=== PATIENT | female | born 1995 | race Two or more races ===

== ENCOUNTER 2019-03-20 00:53 | Emergency (ER) | payer OTHER ==
[2019-03-20 05:05] VITALS: BP 106/60
--- NOTE | 2019-03-20 05:39 | RADIOLOGY REPORT (SQ) ---
EXAM DESCRIPTION: XR NECK SOFT TISSUE COMPLETED DATE/TME: 03/20/2019 05:04 CLINICAL HISTORY: 24 years, Female, eval for retained FB, lac to left posterior ear COMPARISON: None. NUMBER OF VIEWS: 2 TECHNIQUE: 2 views of the neck using soft tissue technique LIMITATIONS: None. FINDINGS: The airway is widely patent. The prevertebral soft tissues are normal. Negative for radiopaque foreign body. The epiglottis is normal IMPRESSION: Negative exam copyright 2010 [employer]- All Rights Reserved
--- NOTE | 2019-03-20 06:07 | ER Document Report ---
ED Wound - General Chief Complaint: Laceration Stated Complaint: LEFT SIDED NECK LACERATION Time Seen by Provider: 03/20/19 05:03 Mode of Arrival: Ambulatory Information source: Patient Notes: Patient is an otherwise healthy 24-year-old female presented to the emergency department with laceration to her left neck just behind her ear. Patient reports she was dancing in the kitchen with her when she fell and struck her face on a wine glass that was sitting on the coffee table. Patient does have a small laceration measuring approximately 2 cm. Patient reports Tdap is up-to-date. Denies any other symptoms. TRAVEL OUTSIDE OF THE [place] IN LAST 30 DAYS: No - Related Data Allergies/Adverse Reactions: No Known Allergies Allergy (Unverified 03/20/19 05:32) Past Medical History - General Information source: Patient - Social History Smoking Status: Never Smoker Chew tobacco use (# tins/day): No Frequency of alcohol use: Occasional Drug Abuse: None Family History: Reviewed & Not Pertinent Patient has suicidal ideation: No Patient has homicidal ideation: No - Medical History Medical History: Negative Renal/ Medical History: Denies: Hx Peritoneal Dialysis Surgical Hx: Negative - Immunizations Immunizations up to date: Yes Review of Systems - Review of Systems Constitutional: No symptoms reported EENT: No symptoms reported Cardiovascular: No symptoms reported Respiratory: No symptoms reported Gastrointestinal: No symptoms reported Genitourinary: No symptoms reported Female Genitourinary: No symptoms reported Musculoskeletal: No symptoms reported Skin: See HPI Hematologic/Lymphatic: No symptoms reported Neurological/Psychological: No symptoms reported Physical Exam - Vital signs Vitals: Temp Pulse Resp BP Pulse Ox 97.7 F 65 20 106/60 99 03/20/19 05:02 03/20/19 05:02 03/20/19 05:02 03/20/19 05:02 03/20/19 05:02 - Notes Notes: PHYSICAL EXAMINATION: GENERAL: Well-appearing, well-nourished and in no acute distress. HEAD: Atraumatic, normocephalic. EYES: Pupils equal round extraocular movements intact, conjunctiva are normal. ENT: Nares patent NECK: Normal range of motion LUNGS: No respiratory distress Musculoskeletal: Normal range of motion NEUROLOGICAL: Normal speech, normal gait. PSYCH: Normal mood, normal affect. SKIN: Warm, Dry, normal turgor, no rashes or lesions noted. 2 cm linear laceration behind patient's ear, approximates well, no active bleeding. Course - Re-evaluation Re-evalutation: X-ray was performed due to laceration being caused by broken glass. There is no retained foreign body. Laceration was repaired using Dermabond. Patient tolerated procedure well and discharged home in stable condition. - Vital Signs Vital signs: Temp Pulse Resp BP Pulse Ox 97.7 F 65 20 106/60 99 03/20/19 05:02 03/20/19 05:02 03/20/19 05:02 03/20/19 05:02 03/20/19 05:02 Procedures - Laceration/Wound Repair Left lateral neck Wound length (cm): 2 Wound's Depth, Shape: Superficial Laceration pre-procedure: Sterile PPE donned Wound explored: Clean Wound Repaired With: Dermabond Complications: No Discharge - Discharge Clinical Impression: Laceration Condition: Stable Disposition: HOME, SELF-CARE Additional Instructions: Dermabond (Skin Adhesive Closure) Skin adhesive (such as Dermabond) is a quick-drying glue that remains slightly flexible while it holds wound edges together. It can substitute for stitches on some cuts. The film will usually fall off the skin after 5 to 10 days. Keep the wound area clean and dry. Do not soak or scrub the wound. Don't swim. You can shower briefly after 24 hours. Gently blot the area dry with a s oft towel. Don't apply ointments. If there is a dressing, change it immediately if it gets wet. Do not place tape directly over the adhesive film, because the tape may pull the film off your skin as you remove it. Don't bump the wound area. If there's risk of injury, keep the area well- padded. Avoid stretching of the skin. Do not scratch or pick at the adhesive film. Avoid prolonged exposure to sunlight or tanning lamps. Return if there is increasing pain, swelling, redness, or drainage, or if the wound edges seem to open or separate.
== END 2019-03-20 06:34 | disposition home or self-care (01) ==
LOC: ER 00:53
DX: S11.81XA Laceration without foreign body of other specified part of neck, initial encounter (principal); W19.XXXA Unspecified fall, initial encounter; W25.XXXA Contact with sharp glass, initial encounter; Y93.41 Activity, dancing
CPT/HCPCS: 70360; 99283